=== PATIENT | female | born 1950 | race Caucasian/White ===

== ENCOUNTER 2020-05-02 14:10 | Outpatient (CLI) | payer MEDICARE, SELFPAY ==
--- NOTE | 2020-05-08 11:21 | WPDPFTINT ---
PFT Interpretation PFT Interpretation: This PFT met all criteria for ATS standards and reproducibility FEV/FVC post bronchodilator 76% of predicted FEV1 125% of predicted FVC 120% of predicted TLC 122% of predicted. RV 130% RV/TLC 43% DLCO 101% when adjusted for alveolar volume but not adjusted for hemoglobin Flow volume loops showed some end exiratory coving. Impression: Hyperinflation and air trapping but no significant obstruction. Needs Methacholine Challenge Study to r/o Asthma or Reactive Airway disease. COPD is less likely but still possible. Clinical correlation is advised.
== END 2020-05-02 14:11 | disposition home or self-care (01) ==
PROVIDERS: Visit Provider Internal Medicine Critical Care Medicine
DX: R09.89 Other specified symptoms and signs involving the circulatory and respiratory systems (principal); R91.8 Other nonspecific abnormal finding of lung field
CPT/HCPCS: 94060; 94726; 94729

== ENCOUNTER 2020-06-01 12:53 | Outpatient (CLI) | payer MEDICARE, SELFPAY ==
--- NOTE | 2020-06-07 13:28 | WPDPFTINT ---
PFT Interpretation PFT Interpretation: DOS: 06/01/2020 REQUESTING: Dr. Jalen Issa REASON FOR TESTING: Shortness of breath METHACHOLINE CHALLENGE This test was conducted per ATS guidelines. A previous study on 05/02/2020.showed normal spirometry, FEV1 117%. The patient was exposed to sequentially increasing doses of methacholine in the usual manner. Level 1 - saline Level 2 - 0.025 mg Level 3 - 0.25 mg Level 4 - 2.5 mg Level 5 - 10 mg Level 6 - 25 mg The test was stopped after the 6th and final dose of methacholine. The patient did not have a decrease of 20% in the FEV1 or FVC after any dose administered. IMPRESSION: This is a negative methacholine challenge. There was not a Statistically significant drop in flows at any dose of methacholine. The best use of a methacholine challenge test to rule out asthma. It is very unlikely this patient has asthma based on the results of this test. Clinical correlation is recommended. Winnie Hinojosa MD
== END 2020-06-01 12:54 | disposition home or self-care (01) ==
PROVIDERS: Visit Provider Internal Medicine Critical Care Medicine
DX: R09.89 Other specified symptoms and signs involving the circulatory and respiratory systems (principal)
CPT/HCPCS: 94070; J7674